=== PATIENT | female | born 1945 | race Two or more races ===

== ENCOUNTER 2020-04-06 06:00 | Day surgery (SDC) | payer OTHER | END 2020-04-06 13:00 | disposition home or self-care (01) | LOC: AMB-ENDOS 06:00 | PROVIDERS: ATTEND Colon & Rectal Surgery | DX: K63.5 Polyp of colon (principal); K44.9 Diaphragmatic hernia without obstruction or gangrene; K20.8 Other esophagitis; K22.70 Barrett's esophagus without dysplasia; K29.60 Other gastritis without bleeding; Z20.828 Contact with and (suspected) exposure to other viral communicable diseases; Z12.11 Encounter for screening for malignant neoplasm of colon ==